=== PATIENT | female | born 1980 | race Caucasian/White ===

== ENCOUNTER 2017-10-24 19:04 | Emergency (ER) | payer BC ==
[2017-10-24 19:07] VITALS: BP 133/71
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
== END 2017-10-24 20:20 | disposition home or self-care (01) ==
LOC: ED 19:04
DX: S40.021A Contusion of right upper arm, initial encounter (principal); Y09 Assault by unspecified means; Y92.9 Unspecified place or not applicable
CPT/HCPCS: 99282